=== PATIENT | male | born 1980 | race Caucasian/White ===

== ENCOUNTER 2019-10-31 04:44 | Emergency (ER) | payer OTHER ==
[~2019-10-31] VITALS: Ht 177.8 cm; Wt 88.5 kg
[2019-10-31] MEDS ORDERED: TRILEPTAL600 MG PO (04:57)
[2019-10-31] MEDS ORDERED: CLONIDINE HCL0.2 M2 PO (04:58)
[2019-10-31 05:27] LABS: URINE BILIRUBIN NEGATIVE (Negative); URINE BLOOD NEGATIVE (Negative); URINE CLARITY CLEAR; URINE COLOR YELLOW; URINE GLUCOSE-RANDOM NEGATIVE (Negative); URINE KETONES NEGATIVE (Negative); URINE LEUKOCYTES-REFLEX NEGATIVE (Negative); URINE NITRITE-REFLEX NEGATIVE (Negative); URINE PROTEIN 1+ (Negative); URINE SPECIFIC GRAVITY 1.025 (1.005-1.030)
[2019-10-31 05:35] LABS: AMP/METHAMP POSITIVE (Negative); BARBITURATES Negative (Negative); BENZODIAZEPINES Negative (Negative); COCAINE Negative (Negative); METHADONE Negative (Negative); OPIATES Negative (Negative); PCP Negative (Negative); THC Negative (Negative)
[2019-10-31 05:38] LABS: ABSOLUTE EOSINOPHILS 0.1 thou/uL (0.0-0.7); ABSOLUTE LYMPHOCYTES 2.1 thou/uL (0.8-5.3); ABSOLUTE MONOCYTES 0.5 thou/uL (0.0-1.2); ABSOLUTE NEUTROPHILS 6.1 thou/uL (1.6-8.1); BASOPHILS 0.5 %; HEMATOCRIT 45.8 % (42.0-52.0); HEMOGLOBIN 15.8 gm/dL (14.0-18.0); LYMPHOCYTES 23.5 %; MCH 31.7 pg (26.0-34.0); MCHC 34.5 g/dL (28.0-37.0); MCV 91.8 fL (80.0-100.0); MONOCYTES 5.8 %; MPV 8.2 fl. (7.2-11.1); NUCLEATED RBCS 0 /100WBC; PLATELET COUNT* 290 thou/uL (150-400); POLYS 69.2 %; RBC 4.99 mil/uL (4.50-6.00); RDW-CV 12.8 % (10.5-14.5); WBC 8.8 thou/uL (4.0-11.0)
[2019-10-31 05:41] LABS: CALCIUM 8.8 mg/dL (8.5-10.1); CREATININE 0.8 mg/dL (0.6-1.3); POTASSIUM 3.4 mmol/L (3.5-5.1)
[2019-10-31 05:46] LABS: ALBUMIN 3.3 g/dL (3.4-5.0); TOTAL BILIRUBIN 0.7 mg/dL (<0.1-1.0); TOTAL PROTEIN 7.2 g/dL (6.4-8.2)
[2019-10-31] MEDS ORDERED: BENTYL 20 MG TA20 M1 PO (06:28)
[2019-10-31] MEDS ORDERED: ZOFRAN ODT4 MG PO (06:28)
[2019-10-31 06:49] VITALS: BP 114/72
== END 2019-10-31 06:50 | disposition home or self-care (01) ==
LOC: M.ERS 04:44
PROVIDERS: Personal Emergency Response Attendant
DX: R10.13 Epigastric pain (principal); R10.11 Right upper quadrant pain; Z79.899 Other long term (current) drug therapy